=== PATIENT | female | born 1945 | race Caucasian/White ===

== ENCOUNTER 2022-09-28 22:25 | Inpatient (IN) | payer OTHER ==
[~2022-09-28] VITALS: Ht 165.1 cm; Wt 55.8 kg
[2022-09-28] MEDS ORDERED: MORPHINE SULFATE 2 MG/1 ML DISP.SYRIN IM ONE (23:00)
[2022-09-28] MEDS ORDERED: KETOROLAC TROMETHAMINE 30 MG INJ IM ONE (23:00)
[2022-09-28 23:29] LABS: HEMATOCRIT 36.2 % (31.2-41.9); MEAN CORPUSCULAR HEMOGLOBIN 33.1 uug (24.7-32.8); MEAN CORPUSCULAR VOLUME 96.2 fL (75.5-95.3); PLATELET COUNT (AUTO) 229 K/uL (179-408)
[2022-09-28 23:32] LABS: CARBON DIOXIDE 29 mmol/L (21-32); CHLORIDE 100 mmol/L (98-107); CREATININE 0.7 mg/dL (0.6-1.3); GLUCOSE 129 mg/dL (74-106); POTASSIUM 3.7 mmol/L (3.5-5.1); UREA NITROGEN, BLOOD 15 mg/dL (7-18)
[2022-09-28 23:40] LABS: ALANINE AMINOTRANSFERASE 42 U/L (14-59); ALKALINE PHOSPHATASE 79 U/L (50-136); ASPARTATE AMINOTRANSFERASE 25 U/L (15-37); BILIRUBIN,DIRECT 0.1 mg/dL (0.0-0.2); BILIRUBIN,TOTAL 0.2 mg/dL (0.2-1.0); TOTAL PROTEIN, SERUM 6.4 g/dL (6.4-8.2)
[2022-09-29] MEDS ORDERED: KETOROLAC TROMETHAMINE 30 MG INJ ONE
[2022-09-29] MEDS ORDERED: MORPHINE SULFATE 2 MG/1 ML DISP.SYRIN IV ONE ×2 (00:30→08:30)
[2022-09-29] MEDS ORDERED: KETOROLAC TROMETHAMINE 30 MG INJ IVP ONE (00:30)
--- NOTE | 2022-09-29 02:45 | NUR ---
Dr. Maria on panel call with Dr. Stef BRENNAN.
[2022-09-29] MEDS ORDERED: ACETAMINOPHEN 325 MG TABLET PO PRN (03:00)
[2022-09-29] MEDS ORDERED: ONDANSETRON 4 MG/2 ML VIAL IV PRN (03:00)
[2022-09-29] MEDS ORDERED: IV NS 1000 ML 1,000 ML IV SCH (03:00)
[2022-09-29] MEDS ORDERED: hydrALAZINE HCL 20 MG/1 ML VIAL IV PRN (03:00)
[2022-09-29] MEDS ORDERED: CARB200T PO (05:34)
[2022-09-29] MEDS ORDERED: PRAV10TA40 PO (05:34)
[2022-09-29] MEDS ORDERED: AMLO2.5T4 PO (05:34)
--- NOTE | 2022-09-29 05:34 | NUR ---
Pt states unable to remember dosages of medications, will bring it later this AM, needs further follow up.
[2022-09-29] MEDS ORDERED: MORPHINE SULFATE 2 MG/1 ML DISP.SYRIN ONE ×2 (08:26)
--- NOTE | 2022-09-29 08:51 | NUR ---
Patient is on the bedpan@the moment.
[2022-09-29] MEDS: DOCUSATE SODIUM 100 MG CAPSULE PO SCH ×2 (09:08→17:02)
--- NOTE | 2022-09-29 09:14 | NUR ---
Patient was not able to do BM. "I just feel like going." per patient. Pt. admitted to medical-surgical floor room 327 , under care of Dr. Finch. Nurse Skylar accepted nursing SBAR. Belongings List completed.
--- NOTE | 2022-09-29 09:35 | NUR ---
77 year old female received from er via gurney to room 327 for hip fx .pt is [id number] are stable call light with in reach md notified for the admission .
[2022-09-29 09:40] VITALS: BP 162/89
[2022-09-29] MEDS ORDERED: DOCUSATE SODIUM 100 MG CAPSULE PO ONE (09:40)
--- NOTE | 2022-09-29 10:49 | NUR ---
dr marx notified for the consultation
[2022-09-29] MEDS: MORPHINE SULFATE 2 MG/1 ML DISP.SYRIN IVP PRN ×2 (13:48→21:09)
[2022-09-29] MEDS ORDERED: ALEN70TA80 PO (14:25)
[2022-09-29 16:00] VITALS: BP 156/87
[2022-09-29 20:00] VITALS: BP 133/82
--- NOTE | 2022-09-29 21:35 | NUR ---
Patient alert oriented, no sob no chest pain, complain of right pelvic pain, given Morphine as ordered with effective results, kept clean dry and comfortable, dao cath patent.
[2022-09-30] MEDS: MORPHINE SULFATE 2 MG/1 ML DISP.SYRIN IVP PRN ×3 (03:14→14:52)
[2022-09-30 04:00] VITALS: BP 160/81
--- NOTE | 2022-09-30 06:00 | NUR ---
PATIENT ASLEEP, BUT AROUSABLE, NO SOB NO CHEST PAIN, CONT ON PAIN MANAGEMENT DUE TO R PELVIC FX, HERRERA CATH PATENT DRAINING WITH YELLOW COLOR URINE IN MODERATE AMOUNT, ENCOURAGE TO DRINK WATER, CONT TO MONITOR.
[2022-09-30 06:04] VITALS: BP 158/92
[2022-09-30 07:17] LABS: BILIRUBIN,TOTAL 0.6 mg/dL (0.2-1.0); CREATININE 0.6 mg/dL (0.6-1.3); PHOSPHOROUS 2.4 mg/dL (2.5-4.9); POTASSIUM 3.4 mmol/L (3.5-5.1)
[2022-09-30 07:26] LABS: HEMATOCRIT 35.1 % (31.2-41.9); MEAN CORPUSCULAR HEMOGLOBIN 33.7 uug (24.7-32.8); MEAN CORPUSCULAR VOLUME 95.9 fL (75.5-95.3); PLATELET COUNT (AUTO) 167 K/uL (179-408)
[2022-09-30] MEDS: DOCUSATE SODIUM 100 MG CAPSULE PO SCH ×2 (08:02→16:02)
[2022-09-30] MEDS: HEPARIN SODIUM,PORCINE 5,000 UNITS/ML VIAL SQ SCH ×2 (08:03→21:25)
[2022-09-30 11:16] VITALS: BP 120/70
[2022-09-30] MEDS ORDERED: POTASSIUM CHLORIDE 20 MEQ TAB.PRT.SR PO ONE (12:00)
[2022-09-30 15:24] VITALS: BP 152/83
[2022-09-30] MEDS ORDERED: NEUTRA PHOS PACKET PO ONE (16:00)
[2022-09-30] MEDS ORDERED: AMLO10TA59 PO (19:09)
[2022-09-30] MEDS ORDERED: hydrALAZINE HCL 25 MG TABLET PO PRN (19:15)
[2022-09-30 20:00] VITALS: BP 146/95
[2022-09-30] MEDS: CARBAMAZEPINE 200 MG TABLET PO SCH (20:43)
[2022-09-30] MEDS: ATORVASTATIN 10 MG TABLET PO SCH (20:43)
[2022-10-01] MEDS: MORPHINE SULFATE 2 MG/1 ML DISP.SYRIN IVP PRN ×3 (02:16→18:09)
[2022-10-01 04:00] VITALS: BP 156/92
--- NOTE | 2022-10-01 05:06 | NUR ---
Patient alert oriented, no sob no chest pain, cont on pain management to right pelvic fx, with effective results, dao cath patent, encouraged patient to shift weight every two hours to prevent pressure sores, able to follow, at bedside cont to monitor, encourage to drink fluids, cont to monitor.
[2022-10-01 06:59] LABS: MEAN CORPUSCULAR HEMOGLOBIN 33.3 uug (24.7-32.8); PLATELET COUNT (AUTO) 181 K/uL (179-408)
[2022-10-01 07:38] LABS: THYROID STIMULATING HORMONE 3.342 mIU/mL (0.358-3.740)
[2022-10-01 07:45] LABS: CARBON DIOXIDE 26 mmol/L (21-32); CHLORIDE 98 mmol/L (98-107); CHOLESTEROL 208 mg/dL (<200); CREATININE 0.5 mg/dL (0.6-1.3); GLUCOSE 102 mg/dL (74-106); HDL CHOLESTEROL 80 mg/dL (40-60); PHOSPHOROUS 3.2 mg/dL (2.5-4.9); POTASSIUM 3.6 mmol/L (3.5-5.1); TRIGLYCERIDES 99 MG/DL (30-150); UREA NITROGEN, BLOOD 8 mg/dL (7-18)
--- NOTE | 2022-10-01 08:00 | NUR ---
resting in bed on rounds, denies of pain at this time, no shortness of breath, needs attended, safety measures observed
--- NOTE | 2022-10-01 09:08 | NUR ---
medicated wisth Morphine IV as ordered prn- will be seen by PT for rehab
[2022-10-01] MEDS: AMLODIPINE 10 MG TABLET PO SCH (09:09)
[2022-10-01] MEDS: HEPARIN SODIUM,PORCINE 5,000 UNITS/ML VIAL SQ SCH ×2 (09:10→20:39)
[2022-10-01] MEDS: CARBAMAZEPINE 200 MG TABLET PO SCH ×3 (09:10→16:33)
[2022-10-01] MEDS: DOCUSATE SODIUM 100 MG CAPSULE PO SCH ×2 (09:10→16:33)
[2022-10-01 11:44] VITALS: BP 143/91
[2022-10-01 16:47] VITALS: BP 99/75
[2022-10-01 16:48] VITALS: BP 145/87
[2022-10-01 20:00] VITALS: BP 140/84
[2022-10-01] MEDS: ATORVASTATIN 10 MG TABLET PO SCH (20:37)
[2022-10-02] MEDS: MORPHINE SULFATE 2 MG/1 ML DISP.SYRIN IVP PRN (03:59)
[2022-10-02 04:00] VITALS: BP 136/79
--- NOTE | 2022-10-02 05:24 | NUR ---
Patient alert oriented, no sob no chest pain, cont on pain management, r pelvix fracture, pain meds effective after 30 minutes, encouraged patient to turn and reposition herself to prevent pressure sores, dao cath patent draining with yellow color, patient has no BM yet stated the 'she not really eating' causing no residual at this time. Patient under physical therapy tolerate well, cont to monitor.
[2022-10-02] MEDS: AMLODIPINE 10 MG TABLET PO SCH (08:19)
[2022-10-02] MEDS: CARBAMAZEPINE 200 MG TABLET PO SCH ×3 (08:19→16:10)
[2022-10-02] MEDS: DOCUSATE SODIUM 100 MG CAPSULE PO SCH ×2 (08:19→16:10)
[2022-10-02] MEDS: HEPARIN SODIUM,PORCINE 5,000 UNITS/ML VIAL SQ SCH ×2 (08:20→20:40)
[2022-10-02] MEDS: HYDROCODONE/APAP 5-325MG TABLET PO PRN (09:37)
[2022-10-02 11:35] VITALS: BP 122/76
[2022-10-02 16:21] VITALS: BP 122/74
[2022-10-02 20:00] VITALS: BP 144/85
[2022-10-02] MEDS: ATORVASTATIN 10 MG TABLET PO SCH (20:32)
--- NOTE | 2022-10-03 05:12 | NUR ---
Patient alert oriented, no sob no chest pain, cont on pain management, r pelvix fracture,no complain of pain at this time, encouraged patient to turn and reposition herself to prevent pressure sores, dao cath patent draining with yellow color, patient has BM yesterday according to the patient, Patient under physical therapy tolerate well, cont to monitor
[2022-10-03 07:04] LABS: HEMATOCRIT 34.5 % (31.2-41.9); MEAN CORPUSCULAR HEMOGLOBIN 33.3 uug (24.7-32.8); MEAN CORPUSCULAR VOLUME 93.6 fL (75.5-95.3); PLATELET COUNT (AUTO) 206 K/uL (179-408)
[2022-10-03 07:20] LABS: CARBON DIOXIDE 29 mmol/L (21-32); CHLORIDE 93 mmol/L (98-107); CREATININE 0.5 mg/dL (0.6-1.3); GLUCOSE 108 mg/dL (74-106); PHOSPHOROUS 3.6 mg/dL (2.5-4.9); POTASSIUM 3.5 mmol/L (3.5-5.1); UREA NITROGEN, BLOOD 10 mg/dL (7-18)
[2022-10-03] MEDS: HYDROCODONE/APAP 5-325MG TABLET PO PRN ×2 (08:17→13:29)
[2022-10-03] MEDS: DOCUSATE SODIUM 100 MG CAPSULE PO SCH ×2 (08:17→16:08)
[2022-10-03] MEDS: CARBAMAZEPINE 200 MG TABLET PO SCH ×3 (08:18→16:08)
[2022-10-03] MEDS: AMLODIPINE 10 MG TABLET PO SCH (08:18)
[2022-10-03] MEDS: HEPARIN SODIUM,PORCINE 5,000 UNITS/ML VIAL SQ SCH ×2 (08:18→20:05)
[2022-10-03 11:59] VITALS: BP 141/80
[2022-10-03 16:43] VITALS: BP 141/75
[2022-10-03 17:02] LABS: *BILIRUBIN,URIN 1+ (NEGATIVE); *BLOOD, URINE 2+ (NEGATIVE); *CLARITY,URINE SLIGHTLY CLOUDY (CLEAR); *COLOR,URINE YELLOW (YELLOW); *KETONES,URINE 3+ (NEGATIVE); LEUKOCYTE ESTERASE ,URINE 1+ (NEGATIVE); NITRITE, URINE POSITIVE (NEGATIVE); PH,URINE 5.5 (5.0-8.0); UGLUCOSE NEGATIVE (NEGATIVE)
[2022-10-03] MEDS ORDERED: CEFTRIAXONE 1 G VIAL IV SCH (18:15)
[2022-10-03] MEDS: CEFTRIAXONE 1 G in IV DEXTROSE 5% 50 ML IV SCH (18:35)
[2022-10-03 20:04] LABS: BACTERIA,URINE MANY /HPF (NONE SEEN); SQUAMOUS EPITHELIAL CELL,UR FEW /HPF (NONE SEEN); WBC,URINE 50-80 /HPF (0-3)
[2022-10-03] MEDS: ATORVASTATIN 10 MG TABLET PO SCH (20:05)
[2022-10-03 20:06] VITALS: BP 119/70
--- NOTE | 2022-10-03 21:28 | NUR ---
DC FOLLY CATHETER PER MD ORDERS
[2022-10-04] VITALS (7 sets, daily range): BP systolic 107–141; BP diastolic 60–88
--- NOTE | 2022-10-04 08:00 | NUR ---
resting in bed, denies of pain, no distress noted, explained plan of care- verbalized understanding
[2022-10-04] MEDS: CARBAMAZEPINE 200 MG TABLET PO SCH ×3 (08:37→16:57)
[2022-10-04] MEDS: DOCUSATE SODIUM 100 MG CAPSULE PO SCH ×2 (08:37→16:57)
[2022-10-04] MEDS: AMLODIPINE 10 MG TABLET PO SCH (08:38)
[2022-10-04] MEDS: HEPARIN SODIUM,PORCINE 5,000 UNITS/ML VIAL SQ SCH ×2 (08:39→21:27)
--- NOTE | 2022-10-04 11:00 | NUR ---
up with PT- BP taken and noted to have orthostatic BP
[2022-10-04] MEDS: GLUCERNA SHAKE 237 ML CAN PO SCH ×2 (13:33→16:57)
[2022-10-04] MEDS: CEFTRIAXONE 1 G in IV DEXTROSE 5% 50 ML IV SCH (17:41)
[2022-10-04] MEDS: MIDODRINE HCL 5 MG TABLET PO SCH (18:44)
--- NOTE | 2022-10-04 18:52 | NUR ---
no distress noted, call light within reach
[2022-10-04] MEDS: ATORVASTATIN 10 MG TABLET PO SCH (21:25)
[2022-10-04] MEDS: HYDROCODONE/APAP 5-325MG TABLET PO PRN (23:24)
[2022-10-05 04:14] VITALS: BP 142/80
[2022-10-05] MEDS ORDERED: ALENDRONATE SODIUM 70 MG TABLET PO SCH (07:00)
[2022-10-05 08:00] VITALS: BP 141/86
[2022-10-05] MEDS: DOCUSATE SODIUM 100 MG CAPSULE PO SCH ×2 (08:21→16:02)
[2022-10-05] MEDS: CARBAMAZEPINE 200 MG TABLET PO SCH ×3 (08:21→16:05)
[2022-10-05] MEDS: GLUCERNA SHAKE 237 ML CAN PO SCH ×3 (08:22→16:03)
[2022-10-05] MEDS: HEPARIN SODIUM,PORCINE 5,000 UNITS/ML VIAL SQ SCH ×2 (08:22→20:55)
[2022-10-05] MEDS: MIDODRINE HCL 5 MG TABLET PO SCH ×2 (09:09→20:50)
[2022-10-05] MEDS: AMLODIPINE 10 MG TABLET PO SCH (09:09)
[2022-10-05 12:00] VITALS: BP 127/76
[2022-10-05 16:00] VITALS: BP 124/73
[2022-10-05] MEDS: CEFTRIAXONE 1 G in IV DEXTROSE 5% 50 ML IV SCH (17:31)
[2022-10-05 20:40] VITALS: BP 133/80
[2022-10-05] MEDS: ATORVASTATIN 10 MG TABLET PO SCH (20:49)
[2022-10-05 23:17] VITALS: BP 133/80
--- NOTE | 2022-10-06 00:50 | NUR ---
Patient alert oriented, no sob no chest pain, cont on pain management, right pelvic fx, no complain of pain at this time. Encouraged patient to turn and reposition herself to prevent pressure sores, dao cath d/c. Voiding freely. Patient under physical therapy tolerate well, will continue to monitor.
[2022-10-06 04:00] VITALS: BP 139/81
--- NOTE | 2022-10-06 05:31 | NUR ---
WHILE ASSESSING PATIENT'S PAIN LEVEL, PATIENT STATED THAT SHE IS IN PAIN WHEN SHE TRIES TO MOVE. OFFERED PAIN MEDICATION BUT PATIENT DENIED AND STATED SHE ONLY WANTS PAIN MEDICATION WHEN IT'S ROUTINE. EXPLAINED TO PATIENT THAT SHE HAS PRN OR ( NEEDED) MEDICATION SHE CAN TAKE WHEN SHE IS IN PAIN. PATIENT VERBALIZED UNDERSTANDING BUT STILL DENIED. RISKS AND BENEFITS EXPLAINED X3. WILL CONTINUE WITH PLAN OF CARE.
[2022-10-06] MEDS: HYDROCODONE/APAP 5-325MG TABLET PO PRN ×2 (05:41→16:42)
[2022-10-06] MEDS: MIDODRINE HCL 5 MG TABLET PO SCH ×2 (09:00→20:47)
[2022-10-06] MEDS: CARBAMAZEPINE 200 MG TABLET PO SCH ×3 (09:47→16:41)
[2022-10-06] MEDS: GLUCERNA SHAKE 237 ML CAN PO SCH ×3 (09:49→16:42)
[2022-10-06] MEDS: AMLODIPINE 10 MG TABLET PO SCH (09:49)
[2022-10-06] MEDS: DOCUSATE SODIUM 100 MG CAPSULE PO SCH ×2 (09:50→16:41)
[2022-10-06] MEDS: HEPARIN SODIUM,PORCINE 5,000 UNITS/ML VIAL SQ SCH ×2 (09:52→20:51)
[2022-10-06 11:50] VITALS: BP 130/83
[2022-10-06 15:40] VITALS: BP 134/82
[2022-10-06] MEDS: CEFTRIAXONE 1 G in IV DEXTROSE 5% 50 ML IV SCH (17:31)
--- NOTE | 2022-10-06 18:27 | NUR ---
Patient complained of pain and asked for pain medication. [place] given tolerated well with effective results. small round redness on right cheeks or buttocks, cleansed and applied Z-guard cream. Pictured taken and placed in patient chart. Patient is alert yet confused at times. Sn, reinforced teaching on skin integrity, to repositioned q2hrs. All medications taken whole with no discomfort. Will continue to monitor on current plan of care.
[2022-10-06 20:00] VITALS: BP 121/75
[2022-10-06] MEDS: ATORVASTATIN 10 MG TABLET PO SCH (20:47)
[2022-10-07 04:00] VITALS: BP 127/82
[2022-10-07] MEDS: HYDROCODONE/APAP 5-325MG TABLET PO PRN ×3 (05:25→13:05)
[2022-10-07] MEDS: GLUCERNA SHAKE 237 ML CAN PO SCH ×3 (08:00→16:17)
[2022-10-07] MEDS: MIDODRINE HCL 5 MG TABLET PO SCH ×2 (09:00→21:00)
[2022-10-07] MEDS: DOCUSATE SODIUM 100 MG CAPSULE PO SCH ×2 (09:29→16:50)
[2022-10-07] MEDS: CARBAMAZEPINE 200 MG TABLET PO SCH ×3 (09:29→16:50)
[2022-10-07] MEDS: AMLODIPINE 10 MG TABLET PO SCH (09:29)
[2022-10-07] MEDS: HEPARIN SODIUM,PORCINE 5,000 UNITS/ML VIAL SQ SCH ×2 (09:31→20:45)
[2022-10-07 10:26] VITALS: BP 109/70
[2022-10-07] MEDS ORDERED: CEPH250C PO (11:29)
[2022-10-07] MEDS ORDERED: MIDO5TAB4 PO (11:29)
[2022-10-07] MEDS ORDERED: HEPA50007 SQ (11:29)
[2022-10-07 16:00] VITALS: BP 154/88
[2022-10-07] MEDS: CEFTRIAXONE 1 G in IV DEXTROSE 5% 50 ML IV SCH (16:17)
[2022-10-07 20:00] VITALS: BP 141/82
[2022-10-07] MEDS: ATORVASTATIN 10 MG TABLET PO SCH (21:32)
[2022-10-08 04:00] VITALS: BP 148/88
[2022-10-08 07:31] LABS: CREATININE 0.7 mg/dL (0.6-1.3); MAGNESIUM 2.1 mg/dL (1.8-2.4); PHOSPHOROUS 3.8 mg/dL (2.5-4.9); POTASSIUM 4.3 mmol/L (3.5-5.1); URIC ACID 2.6 mg/dL (2.6-6.0)
[2022-10-08 07:45] LABS: THYROID STIMULATING HORMONE 3.085 mIU/mL (0.358-3.740)
[2022-10-08] MEDS: MIDODRINE HCL 5 MG TABLET PO SCH (09:00)
[2022-10-08] MEDS: DOCUSATE SODIUM 100 MG CAPSULE PO SCH ×2 (09:00→09:14)
[2022-10-08] MEDS: CARBAMAZEPINE 200 MG TABLET PO SCH (09:14)
[2022-10-08] MEDS: AMLODIPINE 10 MG TABLET PO SCH (09:15)
[2022-10-08] MEDS: GLUCERNA SHAKE 237 ML CAN PO SCH (09:15)
[2022-10-08] MEDS: HEPARIN SODIUM,PORCINE 5,000 UNITS/ML VIAL SQ SCH (09:19)
[2022-10-08] MEDS: HYDROCODONE/APAP 5-325MG TABLET PO PRN ×2 (09:27→12:27)
--- NOTE | 2022-10-08 10:19 | NUR ---
Don Weems DNP in the unit, followed up regarding midodrine due with BP of 134/85, and per MD hold dose at this time.
[2022-10-08 11:51] VITALS: BP 135/86
--- NOTE | 2022-10-08 13:00 | NUR ---
Discharge instructions provided to the patient and Ross at bedside with verbalized understanding. Discharge papers signed by and given to the patient . All belongings well accounted for. Bedside commode and walker provided for patient to bring home. Per case investigator other DME's will be delivered to home. Spoke to Nick Weems DNP regarding discharge medications and per DNP discontinue heparin injection and change to Aspirin 81mg PO daily also to discontinue midodrine. Per Dr. Weems, OK to give a dose of [place] at this time even if not due yet prior discharge. Assisted with her needs. Patient remains alert, oriented x 4, not in any form of distress, on room air. Vital signs stable. IV removed with no signs of bleeding nor infection at the site. No complain of any discomfort at this time. Assisted patient to the lobby via wheelchair. Patient picked up by via private car.
== END 2022-10-08 12:35 | disposition home health service (06) | DRG 543 ==
LOC: ER 22:33 → MEDSURG3 09-29 02:55
PROVIDERS: ATTEND Nurse Practitioner Acute Care
DX: M80.8AXA Other osteoporosis with current pathological fracture, other site, initial encounter for fracture (principal); E87.1 Hypo-osmolality and hyponatremia; N39.0 Urinary tract infection, site not specified; W01.0XXA Fall on same level from slipping, tripping and stumbling without subsequent striking against object, initial encounter; G50.0 Trigeminal neuralgia; G62.9 Polyneuropathy, unspecified; M16.0 Bilateral primary osteoarthritis of hip; E83.39 Other disorders of phosphorus metabolism; E87.6 Hypokalemia; I10 Essential (primary) hypertension; Z20.822 Contact with and (suspected) exposure to COVID-19; Z74.09 Other reduced mobility; E78.5 Hyperlipidemia, unspecified; I08.2 Rheumatic disorders of both aortic and tricuspid valves; R93.1 Abnormal findings on diagnostic imaging of heart and coronary circulation; D75.89 Other specified diseases of blood and blood-forming organs; R55 Syncope and collapse
CPT/HCPCS: 36415; 71045; 72170; 73502; 82533; 83735; 84100; 84443; 84484; 84550; 85025; 85730; 93005; 93307; 97161; A4663; G0378; J0696; J1644; J1885; J2270; J7040; J8499